=== PATIENT | male | born 1975 | race Caucasian/White ===

== ENCOUNTER 2024-10-03 10:51 | Outpatient (POV) | payer OTHER, SELFPAY ==
--- NOTE | 2024-10-03 12:09 | EXP.PAIN.OV ---
HPI Data of Consult Patient: new to practice Consult date: 10/03/24 Requesting Physician: Ese Schulte APRN Primary Care Provider: Emily Wilson APRN Consult Narrative Reason for consult: Low back pain, bilateral hip pain, upper thigh pain History of present illness: Mr. Nicholas is a 49 year old male who presents today as a new patient. He is a referral from [facility]. Today he rates his pain a 9 out of 10. Patient states he has longstanding chronic pain in his back that has been going on for years however the last few months have progressively worsened more prominent on the right side. He describes it as a constant aching, throbbing sensation that is worse with increased activity. He does state the pain is worse with prolonged positioning or doing certain activities. He does state it is interfering with his ability to perform activities of daily living such as cooking and cleaning. Patient does have a left foot torn ligament that did just happen this year and he feels like this may have caused the worsening pain on the right side due to change of how he walks. Patient does state he is seen the physician there in [place] from [facility] and that they are talking about having surgery coming up. Patient does not have a specific date as of right now. Patient states that he has tried oral medications along with heat and ice and topicals with minimal relief. Patient has been given gabapentin and states this helps some. Patient does state in the past he has had an injection to the back and it helped but was more temporary. Patient does state that his daughter was diagnosed with Ethler Danlos syndrome and that they are thinking it came from his family. He states that looking back now there are some symptoms that may have been that all along and caused worsening pain. His Dennis has been reviewed and is appropriate. CC: Ese Schulte APRN [facility] Disclaimer: The information contained in this section may have been updated after the patient was seen, as this information can be updated by other users. Social History Smoking Status: Unknown if ever smoked alcohol intake: never current occupational status: other Travel in the last 8 weeks: None Review of Systems Review of Systems Review of systems:: pertinent systems reviewed and negative unless documented below Review of systems (narrative): Review of Systems: General: No recent weight changes, no fever, no sleep disturbances Respiratory: No cough, no shortness of air, no recurring pulmonary infections Cardiovascular/peripheral vascular: No chest pain, no palpitations, no edema, no shortness of breath Gastrointestinal: No new onset incontinence, normal bowel movements reported Genitourinary: No new onset incontinence Musculoskeletal: Low back pain, right hip, right upper thigh pain Psychiatric: [Normal mood/affect] Neurological: [Denies weakness in extremities], [denies balance issues] Meds Home Medications and Allergies New Prescriptions to Start Prescriptions: Objective Narrative: Physical Exam: General: Alert and oriented x3, no acute distress, pleasant and cooperative Lungs: Respirations even and unlabored, symmetrical chest expansion Eyes: PERRL Musculoskeletal: Flexion and extension of lumbar [spine] somewhat guarded secondary to pain, [antalgic gait noted] point tenderness along bilateral SIs with positive bilateral Kelly's, Pippa's, Gaenslen's, compression and distraction exam Neurological: Speech clear, no gross sensory deficit Assessment and Plan *Assessment and plan (1) Low back pain: Status: Acute Qualifiers: Chronicity: chronic Back pain laterality: bilateral Sciatica presence: with sciatica Sciatica laterality: bilateral sciatica Qualified Code(s): M54.42 - Lumbago with sciatica, left side; M54.41 - Lumbago with sciatica, right side; G89.29 - Other chronic pain Category: Medical Code(s): M54.50 - Low back pain, unspecified (2) Bilateral sacroiliitis: Status: Acute Category: Medical Code(s): M46.1 - Sacroiliitis, not elsewhere classified Plan Patient is experiencing worsening pain throughout his low back and hips. Patient did have point tenderness along his bilateral SIs and a positive bilateral Kelly's, Pippa's, Gaenslen's, compression and distraction exam. I did discuss with the patient that he may benefit from bilateral SI injections. Risk and benefits were discussed with the patient and at this time due to the possibility of upcoming foot surgery he would like to wait. I have counseled the patient that he can call her office and schedule this over the phone once he has confirmation from his foot doctor that there are no contraindications. Patient agrees with this plan of care. I will order the patient compounded cream. Patient will call us for his next follow-up appointment. Patient has been instructed to contact the clinic with any concerns before the next appointment. Dr. Butt has reviewed this note and agrees with this plan of care. This note was dictated using voice recognition software and make contain errors or omissions. All injections are used with Lidocaine or Bupivacaine and Depo Medrol.
[2024-10-03 14:45] VITALS: BP 126/82; PULSE 80; RESP 18; O2SAT 97; BMI 27.2
== END 2024-10-03 23:59 | disposition home or self-care (01) ==
LOC: SC.PAIN 10:56
PROVIDERS: PCP Nurse Practitioner; Visit Provider Nurse Practitioner Family
DX: M54.42 Lumbago with sciatica, left side (principal); M54.41 Lumbago with sciatica, right side; G89.29 Other chronic pain; M46.1 Sacroiliitis, not elsewhere classified; Z73.89 Other problems related to life management difficulty
CPT/HCPCS: 99202; G0463